=== PATIENT | male | born 1960 | race Caucasian/White ===

== ENCOUNTER 2019-03-23 13:43 | Inpatient (IN) ==
[2019-03-23] MEDS ORDERED: 0.9 % Sodium Chloride 1,000 ML IVC ONE (15:42)
[2019-03-23 16:16] LABS: Basophils % 0.3 %; Eosinophils # 0.1 K/mcL (0.0-0.6); Eosinophils % 1.1 %; Hemoglobin 13.6 g/dL (12.9-16.9); Immature Granulocytes % 0.3 % (0-4); Lymphocytes # 0.8 K/mcL (0.6-4.6); Lymphocytes % 7.7 %; Mean Corpuscular HGB Conc 33.2 g/dL (31.6-35.5); Mean Corpuscular Hemoglobin 28.8 pg (28.0-33.3); Mean Corpuscular Volume 86.7 fL (83.0-100.0); Monocytes # 1.1 K/mcL (0.0-1.3); Monocytes % 10.6 %; Neutrophils # 8.4 K/mcL (1.6-8.9); Platelet Count 212 K/mcL (140-400); Red Blood Count 4.73 M/mcL (4.19-5.50); Red Cell Distribution Width 12.9 % (11.5-14.5); White Blood Count 10.5 K/mcL (4.3-11.1)
[2019-03-23 16:27] LABS: ABG Base Excess 2 mEq/L (-2 to 3); ABG HCO3 28 mEq/L (21-27); ABG Oxygen Saturation 90 % (95-98); ABG PCO2 48 mmHg (35-45); ABG PH 7.38 pH Units (7.32-7.45); ABG PO2 60 mmHg (85-104); ABG TCO2 30 mEq/L (20-26)
[2019-03-23] MEDS ORDERED: Ipratropium/Albuterol Neb 3 ML IH ONE ×2 (16:30→17:22)
[2019-03-23 16:35] LABS: BUN/Creatinine Ratio 14 (6-26); Blood Urea Nitrogen 13 mg/dL (6-20); Calcium 9.3 mg/dL (8.6-10.3); Carbon Dioxide 26 mEq/L (23-29); Chloride 102 mEq/L (98-107); Glucose 102 mg/dL (70-105); Osmolality,Calculated 286 (280-300); Sodium 138 mEq/L (136-145); Troponin I < 0.03 ng/mL (< 0.04); eGFR For African Americans > 60 (> 60); eGFR For Non-African Americans > 60 (> 60)
[2019-03-23] MEDS ORDERED: Azithromycin 500 MG in 0.9 % Sodium Chloride 250 ML IVPB ONE (17:18)
[2019-03-23] MEDS ORDERED: cefTRIAXone 1,000 MG in Water for inj. (sterile) 10 ML IVP ONE (17:18)
[2019-03-23] MEDS ORDERED: Dexamethasone 4 MG/ML VIAL IVP ONE (17:19)
[2019-03-23] MEDS ORDERED: Naloxone 0.4 MG/ML INJ IVP PRN (17:45)
[2019-03-23] MEDS ORDERED: Acetaminophen 325 MG TABLET PO PRN (17:47)
[2019-03-23] MEDS: Ipratropium/Albuterol Neb 3 ML IH SCH ×2 (19:50→23:21)
[2019-03-23] MEDS: *HR* Heparin 5,000 UNIT/ML VIAL SQ SCH (20:41)
[2019-03-23] MEDS: *HR* OxyCODONE Immed Rel 5 MG TABLET PO PRN (23:31)
[2019-03-24] MEDS: Ipratropium/Albuterol Neb 3 ML IH SCH ×5 (03:55→19:47)
[2019-03-24] MEDS: *HR* OxyCODONE Immed Rel 5 MG TABLET PO PRN ×5 (06:15→21:08)
[2019-03-24] MEDS: *HR* Heparin 5,000 UNIT/ML VIAL SQ SCH ×3 (06:16→20:10)
[2019-03-24] MEDS: MethylPREDNISolone 40 MG/ML VIAL IVP SCH ×2 (06:16→17:28)
[2019-03-24 06:17] LABS: Hematocrit 37.4 % (37.5-50.1); Hemoglobin 12.5 g/dL (12.9-16.9); Immature Granulocytes % 0.3 % (0-4); Lymphocytes # 0.4 K/mcL (0.6-4.6); Lymphocytes % 4.8 %; Mean Corpuscular HGB Conc 33.4 g/dL (31.6-35.5); Mean Corpuscular Hemoglobin 28.9 pg (28.0-33.3); Mean Corpuscular Volume 86.6 fL (83.0-100.0); Mean Platelet Volume 11.4 fL (9.4-12.4); Monocytes # 0.2 K/mcL (0.0-1.3); Monocytes % 2.8 %; Neutrophils # 6.9 K/mcL (1.6-8.9); Platelet Count 197 K/mcL (140-400); Red Blood Count 4.32 M/mcL (4.19-5.50); Red Cell Distribution Width 12.9 % (11.5-14.5); Segmented Neutrophils % 92.1 %; White Blood Count 7.5 K/mcL (4.3-11.1)
[2019-03-24 06:36] LABS: BUN/Creatinine Ratio 17 (6-26); Blood Urea Nitrogen 13 mg/dL (6-20); Carbon Dioxide 23 mEq/L (23-29); Chloride 106 mEq/L (98-107); Glucose 168 mg/dL (70-105); Magnesium 1.9 mg/dL (1.6-2.6); Osmolality,Calculated 292 (280-300); Phosphorous 2.8 mg/dL (2.7-4.5); Potassium 3.8 mEq/L (3.5-5.1); Sodium 139 mEq/L (136-145); eGFR For African Americans > 60 (> 60); eGFR For Non-African Americans > 60 (> 60)
[2019-03-24] MEDS: Azithromycin 500 MG in 0.9 % Sodium Chloride 250 ML IVPB SCH (17:29)
[2019-03-24 21:30] LABS: Adenovirus Not Detected (Not Detect); Bordetella Pertussis Not Detected (Not Detect); Chlamydophila pneumoniae Not Detected (Not Detect); Coronavirus 229E Not Detected (Not Detect); Coronavirus HKU1 Not Detected (Not Detect); Coronavirus NL63 Not Detected (Not Detect); Coronavirus OC43 Not Detected (Not Detect); Human Metapneumovirus Not Detected (Not Detect); Human Rhinovirus/Enterovirus Not Detected (Not Detect); Influenza A Subtype 2009 H1 Not Detected (Not Detect); Influenza A Untypeable Not Detected (Not Detect); Influenza B Not Detected (Not Detect); Mycoplasma pneumoniae Not Detected (Not Detect); Parainfluenza Virus 1 Not Detected (Not Detect); Parainfluenza Virus 2 Not Detected (Not Detect); Parainfluenza Virus 3 Not Detected (Not Detect); Parainfluenza Virus 4 Not Detected (Not Detect); Respiratory Syncytial Virus Not Detected (Not Detect)
[2019-03-25] MEDS: Ipratropium/Albuterol Neb 3 ML IH SCH ×7 (00:06→23:50)
[2019-03-25] MEDS: *HR* OxyCODONE Immed Rel 5 MG TABLET PO PRN ×4 (03:09→18:08)
[2019-03-25] MEDS: *HR* Heparin 5,000 UNIT/ML VIAL SQ SCH ×3 (06:23→21:02)
[2019-03-25] MEDS: MethylPREDNISolone 40 MG/ML VIAL IVP SCH ×2 (06:23→17:34)
[2019-03-25] MEDS: amLODIPine 5 MG TABLET PO SCH (08:49)
[2019-03-25] MEDS: Azithromycin 500 MG in 0.9 % Sodium Chloride 250 ML IVPB SCH (17:35)
[2019-03-26] MEDS: *HR* OxyCODONE Immed Rel 5 MG TABLET PO PRN ×3 (01:34→08:47)
[2019-03-26] MEDS: Ipratropium/Albuterol Neb 3 ML IH SCH ×2 (03:53→07:44)
[2019-03-26] MEDS: *HR* Heparin 5,000 UNIT/ML VIAL SQ SCH (05:11)
[2019-03-26] MEDS: MethylPREDNISolone 40 MG/ML VIAL IVP SCH (05:11)
[2019-03-26 07:15] VITALS: BP 170/73
[2019-03-26] MEDS: amLODIPine 5 MG TABLET PO SCH (08:47)
== END 2019-03-26 10:08 | disposition home or self-care (01) | DRG 192 ==
LOC: EMEROOARM 13:43 → 3BNU 13:43
PROVIDERS: ADMIT Internal Medicine; ATTEND Internal Medicine

== ENCOUNTER 2020-10-19 21:01 | Observation (INO) ==
[2020-10-19] MEDS ORDERED: 0.9 % Sodium Chloride 1,000 ML IVC ONE (21:57)
[2020-10-19 21:59] LABS: Basophils % 0.5 %; Eosinophils % 0.3 %; Hematocrit 40.2 % (37.5-50.1); Hemoglobin 12.5 g/dL (12.9-16.9); Immature Granulocytes % 0.3 % (0-4); Lymphocytes # 0.4 K/mcL (0.6-4.6); Lymphocytes % 10.1 %; Mean Corpuscular HGB Conc 31.1 g/dL (31.6-35.5); Mean Corpuscular Hemoglobin 27.5 pg (28.0-33.3); Mean Corpuscular Volume 88.4 fL (83.0-100.0); Mean Platelet Volume 10.6 fL (9.4-12.4); Monocytes # 0.7 K/mcL (0.0-1.3); Monocytes % 20.1 %; Neutrophils # 2.5 K/mcL (1.6-8.9); Platelet Count 117 K/mcL (140-400); Red Blood Count 4.55 M/mcL (4.19-5.50); Red Cell Distribution Width 13.7 % (11.5-14.5); Segmented Neutrophils % 68.7 %; White Blood Count 3.7 K/mcL (4.3-11.1)
[2020-10-19 22:08] LABS: BUN/Creatinine Ratio 6 (6-26); Blood Urea Nitrogen 6 mg/dL (6-20); Calcium 8.9 mg/dL (8.6-10.3); Carbon Dioxide 31 mEq/L (23-29); Chloride 94 mEq/L (98-107); Glucose 98 mg/dL (70-105); Osmolality,Calculated 276 (280-300); Potassium 3.5 mEq/L (3.5-5.1); Sodium 134 mEq/L (136-145); Troponin I < 0.03 ng/mL (< 0.04); eGFR For African Americans > 60 (> 60); eGFR For Non-African Americans > 60 (> 60)
[2020-10-19 22:15] LABS: Platelet Estimate Slight Decrease (Normal)
[2020-10-19 22:56] LABS: Adenovirus Not Detected (Not Detect); Coronavirus 229E Not Detected (Not Detect); Coronavirus HKU1 Not Detected (Not Detect); Coronavirus NL63 Not Detected (Not Detect); Coronavirus OC43 Not Detected (Not Detect)
[2020-10-19 22:58] LABS: Bordetella Pertussis Not Detected (Not Detect); Chlamydophila pneumoniae Not Detected (Not Detect); Human Metapneumovirus Not Detected (Not Detect); Human Rhinovirus/Enterovirus Not Detected (Not Detect); Influenza A Subtype 2009 H1 Not Detected (Not Detect); Influenza B Not Detected (Not Detect); Mycoplasma pneumoniae Not Detected (Not Detect); Parainfluenza Virus 1 Not Detected (Not Detect); Parainfluenza Virus 2 Not Detected (Not Detect); Parainfluenza Virus 3 Not Detected (Not Detect); Parainfluenza Virus 4 Not Detected (Not Detect); Respiratory Syncytial Virus Not Detected (Not Detect); SARS-CoV-2 DETECTED (Not Detect)
[2020-10-19 23:09] LABS: VBG Base Excess 4 mEq/L; VBG Chloride 95 mEq/L (98-107); VBG Glucose 98 mg/dl (65-95); VBG HCO3 30 mEq/L (21-27); VBG Ionized Calcium 1.12 mmol/L (1.15-1.35); VBG Oxygen Saturation 82 %; VBG PCO2 54 mmHg (41-51); VBG PH 7.36 pH Units (7.32-7.42); VBG PO2 50 mmHg (25-50); VBG Total CO2 32 mEq/L
[2020-10-19] MEDS ORDERED: Remdesivir 200 MG in 0.9 % Sodium Chloride 100 ML IVPB ONE (23:31)
[2020-10-20] MEDS ORDERED: *HR* OxyCODONE/APAP 10/325 TABLET PO STA (00:28)
[2020-10-20 01:32] LABS: Albumin 3.7 g/dL (3.5-5.7); Albumin/Globulin Ratio 1.5 (1.1-2.2); Bilirubin,Direct 0.1 mg/dL (0.0-0.2); Bilirubin,Indirect 0.3 mg/dL (0.0-1.0); Bilirubin,Total 0.4 mg/dL (0.3-1.0); Globulin 2.5 g/dL (2.4-3.5); Total Protein 6.2 g/dL (6.4-8.9)
[2020-10-20] MEDS ORDERED: Remdesivir 200 MG in 0.9 % Sodium Chloride 100 ML IVPB ONE ×2 (02:00→02:48)
[2020-10-20] MEDS ORDERED: Naloxone 0.4 MG/ML INJ IVP PRN (02:28)
[2020-10-20] MEDS ORDERED: Potassium Chloride Elixir 20 MEQ/15 ML UDC PO ONE (02:33)
[2020-10-20 02:35] LABS: ABG Base Excess 5 mEq/L (-2 to 3); ABG HCO3 31 mEq/L (21-27); ABG Oxygen Saturation 95 % (95-98); ABG PCO2 55 mmHg (35-45); ABG PH 7.36 pH Units (7.32-7.45); ABG PO2 80 mmHg (85-104); ABG TCO2 33 mEq/L (20-26); Blood Gas Modality BiLevel
[2020-10-20] MEDS ORDERED: *HR* Enoxaparin 40 MG/0.4 ML SYRINGE SQ ONE (02:50)
[2020-10-20 06:06] LABS: Basophils % 0.3 %; Hematocrit 37.9 % (37.5-50.1); Hemoglobin 11.8 g/dL (12.9-16.9); Immature Granulocytes % 0.3 % (0-4); Lymphocytes # 0.5 K/mcL (0.6-4.6); Lymphocytes % 15.4 %; Mean Corpuscular HGB Conc 31.1 g/dL (31.6-35.5); Mean Corpuscular Hemoglobin 27.7 pg (28.0-33.3); Mean Platelet Volume 11.6 fL (9.4-12.4); Monocytes # 0.1 K/mcL (0.0-1.3); Monocytes % 3.4 %; Neutrophils # 2.4 K/mcL (1.6-8.9); Platelet Count 110 K/mcL (140-400); Red Blood Count 4.26 M/mcL (4.19-5.50); Red Cell Distribution Width 13.6 % (11.5-14.5); Segmented Neutrophils % 80.6 %; White Blood Count 2.9 K/mcL (4.3-11.1)
[2020-10-20 06:37] LABS: Alanine Aminotransferase 6 Units/L (7-52); Albumin 3.8 g/dL (3.5-5.7); Albumin/Globulin Ratio 1.5 (1.1-2.2); Alkaline Phosphatase 78 Units/L (34-104); Aspartate Amino Transferase 18 Units/L (13-39); BUN/Creatinine Ratio 9 (6-26); Bilirubin,Indirect 0.4 mg/dL (0.0-1.0); Bilirubin,Total 0.4 mg/dL (0.3-1.0); Blood Urea Nitrogen 8 mg/dL (6-20); Calcium 8.3 mg/dL (8.6-10.3); Carbon Dioxide 26 mEq/L (23-29); Chloride 102 mEq/L (98-107); Globulin 2.5 g/dL (2.4-3.5); Glucose 136 mg/dL (70-105); Osmolality,Calculated 282 (280-300); Potassium 4.3 mEq/L (3.5-5.1); Sodium 136 mEq/L (136-145); Total Protein 6.3 g/dL (6.4-8.9); eGFR For African Americans > 60 (> 60); eGFR For Non-African Americans > 60 (> 60)
[2020-10-20] MEDS: amLODIPine 5 MG TABLET PO SCH (10:10)
[2020-10-20] MEDS: Gabapentin 400 MG CAPSULE PO SCH ×3 (10:10→20:00)
[2020-10-20] MEDS: *HR* OxyCODONE Immed Rel 5 MG TABLET PO PRN ×3 (10:13→20:03)
[2020-10-20] MEDS: *HR* OxyCODONE ER (12 HR) 10 MG TABLET PO SCH ×2 (10:30→20:00)
[2020-10-20] MEDS: *HR* Heparin 5,000 UNIT/ML VIAL SQ SCH (18:05)
[2020-10-21] MEDS: *HR* OxyCODONE Immed Rel 5 MG TABLET PO PRN ×3 (04:03→13:52)
[2020-10-21] MEDS: *HR* Heparin 5,000 UNIT/ML VIAL SQ SCH (05:58)
[2020-10-21 07:00] LABS: Hemoglobin 11.8 g/dL (12.9-16.9); Immature Granulocytes % 0.3 % (0-4); Mean Corpuscular Volume 87.6 fL (83.0-100.0); Red Cell Distribution Width 13.6 % (11.5-14.5)
[2020-10-21 07:02] LABS: Hematocrit 37.6 % (37.5-50.1); Lymphocytes # 0.6 K/mcL (0.6-4.6); Lymphocytes % 20.5 %; Mean Corpuscular HGB Conc 31.4 g/dL (31.6-35.5); Mean Corpuscular Hemoglobin 27.5 pg (28.0-33.3); Mean Platelet Volume 10.8 fL (9.4-12.4); Monocytes # 0.5 K/mcL (0.0-1.3); Monocytes % 15.1 %; Platelet Count 133 K/mcL (140-400); Red Blood Count 4.29 M/mcL (4.19-5.50); Segmented Neutrophils % 64.1 %; White Blood Count 3.1 K/mcL (4.3-11.1)
[2020-10-21 08:13] LABS: BUN/Creatinine Ratio 21 (6-26); Blood Urea Nitrogen 18 mg/dL (6-20); Calcium 8.4 mg/dL (8.6-10.3); Carbon Dioxide 26 mEq/L (23-29); Chloride 102 mEq/L (98-107); Glucose 93 mg/dL (70-105); Osmolality,Calculated 284 (280-300); Potassium 3.9 mEq/L (3.5-5.1); Sodium 136 mEq/L (136-145); eGFR For African Americans > 60 (> 60); eGFR For Non-African Americans > 60 (> 60)
[2020-10-21] MEDS: *HR* OxyCODONE ER (12 HR) 10 MG TABLET PO SCH (08:21)
[2020-10-21] MEDS: Gabapentin 400 MG CAPSULE PO SCH (08:21)
[2020-10-21] MEDS: amLODIPine 5 MG TABLET PO SCH (08:21)
[2020-10-21] MEDS ORDERED: PARoxetine 20 MG TABLET PO SCH (09:00)
[2020-10-21] MEDS ORDERED: Remdesivir 100 MG in 0.9 % Sodium Chloride 100 ML IVPB SCH (09:00)
[2020-10-21 11:24] VITALS: BP 149/90
== END 2020-10-21 15:19 | disposition home or self-care (01) ==
LOC: 2ANU 21:01 → EMEROOARM 21:01 → SUATTDRO 10-20 00:33 → 2ANU 10-20 01:35
PROVIDERS: ADMIT Student in an Organized Health Care Education/Training Program; ATTEND Internal Medicine